=== PATIENT | male | born 1970 | race African-American/Black ===

== ENCOUNTER 2023-07-25 10:17 | Inpatient (IN) | payer MEDICAID ==
[~2023-07-25] VITALS: Ht 165.1 cm; Wt 63.5 kg
[2023-07-25 12:47] VITALS: BP 133/107; PULSE 76; RESP 20; TEMP 98.4
[2023-07-25] MEDS ORDERED: QUET100T PO (12:50)
[2023-07-25] MEDS ORDERED: PNEUMOCOCCAL VACCINE POLYVALENT 0.5 ML SYRINGE [PPSV23] IM. ONE (13:15)
[2023-07-25] MEDS ORDERED: HALOPERIDOL 5 MG TABLET PO PRN (14:00)
[2023-07-25] MEDS ORDERED: ZOLPIDEM TARTRATE 10 MG TABLET PO PRN (14:00)
[2023-07-25 14:24] VITALS: BP 149/75; PULSE 73; RESP 18; TEMP 98.3; O2SAT 99
[2023-07-25 17:46] VITALS: BP 142/82; PULSE 72; RESP 18; TEMP 98; O2SAT 97
[2023-07-26] MEDS: NICOTINE 14 MG/24 HOUR PATCH TD SCH (08:18)
[2023-07-26 08:25] VITALS: BP 137/100; PULSE 64; RESP 18; TEMP 98.7; O2SAT 100
[2023-07-26] MEDS: QUEtiapine FUMARATE 200 MG TABLET PO SCH ×2 (09:45→20:22)
[2023-07-26 15:23] VITALS: RESP 18
[2023-07-26] MEDS: IBUPROFEN 400 MG TABLET PO PRN (15:23)
[2023-07-26] MEDS: LORazepam 2 MG TABLET PO PRN (15:23)
[2023-07-26 16:30] VITALS: RESP 18
[2023-07-26 20:32] VITALS: BP 142/82; PULSE 69; RESP 18; TEMP 98.3; O2SAT 97
[2023-07-27] MEDS: IBUPROFEN 400 MG TABLET PO PRN (05:11)
[2023-07-27 05:12] VITALS: BP 141/86; PULSE 92; RESP 18; TEMP 98.3; O2SAT 98
[2023-07-27] MEDS: LORazepam 2 MG TABLET PO PRN ×2 (07:57→19:58)
[2023-07-27 08:07] LABS: HEPATITIS C AB (EIA) Non Reactive (Non Reactive)
[2023-07-27] MEDS: NICOTINE 14 MG/24 HOUR PATCH TD SCH (08:26)
[2023-07-27] MEDS: QUEtiapine FUMARATE 200 MG TABLET PO SCH ×2 (08:26→20:28)
[2023-07-27 08:47] VITALS: BP 160/87; PULSE 64; RESP 20; TEMP 98; O2SAT 99
[2023-07-27 12:28] VITALS: RESP 18
[2023-07-27] MEDS: ACETAMINOPHEN 325 MG TABLET PO PRN (12:28)
[2023-07-27 13:28] VITALS: RESP 18
[2023-07-28 08:09] VITALS: BP 152/91; PULSE 70; RESP 18; TEMP 97.6; O2SAT 100
[2023-07-28] MEDS: QUEtiapine FUMARATE 200 MG TABLET PO SCH ×2 (08:09→20:03)
[2023-07-28] MEDS: NICOTINE 14 MG/24 HOUR PATCH TD SCH (09:15)
[2023-07-28 20:18] VITALS: BP 128/66; PULSE 80; RESP 19; TEMP 97.6; O2SAT 98
[2023-07-29 08:22] VITALS: BP 143/97; PULSE 86; RESP 17; TEMP 98.2; O2SAT 100
[2023-07-29] MEDS: QUEtiapine FUMARATE 200 MG TABLET PO SCH ×2 (08:39→09:13)
[2023-07-29] MEDS: NICOTINE 14 MG/24 HOUR PATCH TD SCH (08:51)
[2023-07-29 09:11] VITALS: RESP 17
[2023-07-29] MEDS: IBUPROFEN 400 MG TABLET PO PRN (09:11)
[2023-07-29 10:11] VITALS: RESP 18
[2023-07-29] MEDS: ACETAMINOPHEN 325 MG TABLET PO PRN (15:10)
[2023-07-29 15:12] VITALS: RESP 17
== END 2023-07-29 15:51 | disposition left against medical advice (07) | DRG 750 ==
LOC: B3A 13:43
PROVIDERS: ADMIT Psychiatry & Neurology Psychiatry; ATTEND Psychiatry & Neurology Psychiatry
DX: F25.0 Schizoaffective disorder, bipolar type (principal); R45.851 Suicidal ideations; R00.0 Tachycardia, unspecified; G47.00 Insomnia, unspecified; F41.9 Anxiety disorder, unspecified
CPT/HCPCS: 86803; 87081; 87340; 90732